=== PATIENT | male | born 1965 | race American Indian/Alaskan Native ===

== ENCOUNTER 2020-05-13 18:40 | Inpatient (IN) | payer OTHER ==
[2020-05-13] MEDS ORDERED: MORPHINE 4 MG/1 ML INJ IV ONE (18:48)
[2020-05-13] MEDS ORDERED: MORPHINE 2 MG/1 ML INJ ONE (18:50)
[2020-05-13] MEDS ORDERED: ONDANSETRON 4 MG/2 ML INJ ONE ×2 (18:50→22:23)
[2020-05-13] MEDS ORDERED: ONDANSETRON 4 MG/2 ML INJ IV ONE ×2 (18:51→20:20)
[2020-05-13] MEDS ORDERED: HYDROmorphone 1 MG/1 ML INJ IV ONE ×5 (18:56→21:14)
[2020-05-13] MEDS ORDERED: niCARdipine 50 MG in SODIUM CHLORIDE 0.9% 250ML 230 ML IV SCH (19:00)
[2020-05-13 19:09] LABS: Basophils % (Auto) 0.5 % (0.0-1.8); Eosinophils % (Auto) 0.5 % (0.0-4.3); Hematocrit 43.7 % (35.5-45.6); Hemoglobin 14.5 gm/dl (11.8-15.2); Lymphocytes # (Auto) 1.5 K/mm3 (1.2-5.4); Lymphocytes % (Auto) 16.4 % (13.4-35.0); Mean Corpuscular HGB Conc 33 % (32-34); Mean Corpuscular Volume 91 fl (84-94); Monocytes # (Auto) 0.4 K/mm3 (0.0-0.8); Platelet Count 285 K/mm3 (140-440); Red Blood Count 4.78 M/mm3 (3.65-5.03); Red Cell Distribution Width 13.4 % (13.2-15.2)
--- NOTE | 2020-05-13 19:12 | Emergency Department Report ---
ED Abdominal Pain HPI - General Chief Complaint: Abdominal Pain Stated Complaint: ABD PAIN Time Seen by Provider: 05/13/20 18:51 Source: EMS Mode of arrival: Ambulatory Limitations: No Limitations - History of Present Illness Initial Comments: 54-year-old male with a past medical history of hypertension off meds for "a long time" presents to the hospital complaining of sudden onset of mid abdominal pain prior to arrival. 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 Patient states he was having a constant strong midline abdominal pain. Patient presents hypertensive and diaphoretic. He denies nausea, vomiting, fever, cough, or dysuria. He denies previous abdominal surgeries. He denies alcohol abuse. EMS EKG reviewed and no signs of ST elevation CO. Patient denies pain radiation to the chest. Severity scale (0 -10): 7 - Related Data Allergies Allergy/AdvReac Type Severity Reaction Status Date / Time No Known Allergies Allergy Unverified 05/13/20 19:01 ED Review of Systems ROS: Stated complaint: ABD PAIN Other details as noted in HPI Comment: All other systems reviewed and negative ED Past Medical Hx - Past Medical History Previous Medical History?: Yes Hx Hypertension: Yes - Surgical History Past Surgical History?: No - Social History Smoking Status: Never Smoker Substance Use Type: Alcohol ED Physical Exam - General Limitations: No Limitations - Other Other exam information: General: Positive acute distress and diaphoresis Head: Atraumatic Eyes: normal appearance ENT: Moist mucous membranes Neck: Normal appearance, no midline tenderness Chest: Clear to auscultation bilaterally CV: Bradycardic regular rhythm Abdomen: Soft, normal bowel sounds, significant midline tenderness throughout mid abdomen Back: Normal inspection Extremity: Normal inspection, full range of motion Neuro: Alert O x 3, no facial asymmetry, speech clear, no gross motor sensory deficit Psych: Appropriate behavior Skin: Diaphoretic ED Course Vital Signs 05/13/20 05/13/20 05/13/20 18:46 18:53 18:59 Temperature 98.2 F Pulse Rate 56 L Respiratory 22 18 Rate Blood Pressure 212/96 216/63 Blood Pressure 216/96 [Right] O2 Sat by Pulse 100 Oximetry 05/13/20 05/13/20 05/13/20 19:00 19:01 19:27 Temperature Pulse Rate Respiratory 18 Rate Blood Pressure 212/96 191/107 Blood Pressure [Right] O2 Sat by Pulse 99 81 L Oximetry 05/13/20 05/13/20 05/13/20 19:31 19:45 19:48 Temperature Pulse Rate 54 L Respiratory 13 18 18 Rate Blood Pressure 191/107 191/107 Blood Pressure [Right] O2 Sat by Pulse 96 100 Oximetry 05/13/20 05/13/20 05/13/20 20:00 20:15 20:23 Temperature Pulse Rate 71 88 Respiratory 20 18 18 Rate Blood Pressure 198/100 187/97 Blood Pressure [Right] O2 Sat by Pulse 97 95 Oximetry 05/13/20 05/13/20 05/13/20 20:31 20:39 20:45 Temperature Pulse Rate 77 87 Respiratory 25 H 18 20 Rate Blood Pressure 187/97 175/91 Blood Pressure [Right] O2 Sat by Pulse 97 95 Oximetry 05/13/20 05/13/20 05/13/20 21:00 21:15 21:30 Temperature Pulse Rate 83 103 H 92 H Respiratory 13 15 17 Rate Blood Pressure 179/86 175/91 166/88 Blood Pressure [Right] O2 Sat by Pulse 96 92 Oximetry 05/13/20 05/13/20 05/14/20 21:45 22:00 01:10 Temperature 97.5 F L Pulse Rate 95 H 98 H 88 Respiratory 17 17 15 Rate Blood Pressure 164/87 167/82 153/84 Blood Pressure [Right] O2 Sat by Pulse 96 Oximetry 05/14/20 05/14/20 05/14/20 01:15 01:20 01:25 Temperature Pulse Rate 66 69 64 Respiratory 14 12 14 Rate Blood Pressure 158/88 158/87 167/91 Blood Pressure [Right] O2 Sat by Pulse 100 100 100 Oximetry 05/14/20 05/14/20 01:30 01:35 Temperature Pulse Rate 64 72 Respiratory 12 12 Rate Blood Pressure 165/91 162/89 Blood Pressure [Right] O2 Sat by Pulse 100 100 Oximetry - Reevaluation(s) Reevaluation #1: 05/13/20 19:12 Patient presents with significant pain, diaphoresis and hypertension with long- term noncompliance of blood pressure medication and sudden onset of midline abdominal pain. I am very concerned about an aortic dissection. I requested a stat CT a chest abdomen and pelvis prior to lab resulting. I expressed my concern and need for emergent IV contrast administration prior to creatinine and patient provided consent. Patient also medicated with narcotics and Zofran for pain and Cardene drip ordered to control hypertension 05/13/20 20:20 Patient requiring multiple doses of narcotics and Zofran for continued abdominal pain with diaphoresis. - Consultations Consultation #1: 05/13/20 20:25 Case discussed with on-call surgeon Dr. Blair requiring SBO findings and will review CT and evaluate patient for possible surgery today. Request hospitalist to admit. 05/13/20 21:15 ED Medical Decision Making - Lab Data Result diagrams: 05/13/20 19:00 05/13/20 19:00 Lab Results 05/13/20 05/13/20 05/13/20 Range/Units 19:00 19:00 19:00 WBC 9.4 (4.5-11.0) K/mm3 RBC 4.78 (3.65-5.03) M/mm3 Hgb 14.5 (11.8-15.2) gm/dl Hct 43.7 (35.5-45.6) % MCV 91 (84-94) fl MCH 30 (28-32) pg MCHC 33 (32-34) % RDW 13.4 (13.2-15.2) % Plt Count 285 (140-440) K/mm3 Lymph % (Auto) 16.4 (13.4-35.0) % [place] % (Auto) 4.0 (0.0-7.3) % Eos % (Auto) 0.5 (0.0-4.3) % Baso % (Auto) 0.5 (0.0-1.8) % Lymph # 1.5 (1.2-5.4) K/mm3 Broome # 0.4 (0.0-0.8) K/mm3 Eos # 0.0 (0.0-0.4) K/mm3 Baso # 0.0 (0.0-0.1) K/mm3 Seg Neutrophils % 78.6 H (40.0-70.0) % Seg Neutrophils # 7.4 (1.8-7.7) K/mm3 PT 13.1 (12.2-14.9) Sec. INR 1.01 (0.87-1.13) APTT 33.3 (24.2-36.6) Sec. Sodium 141 (137-145) mmol/L Potassium 3.5 L (3.6-5.0) mmol/L Chloride 101.4 (98-107) mmol/L Carbon Dioxide 27 (22-30) mmol/L Anion Gap 16 mmol/L BUN 13 (9-20) mg/dL Creatinine 1.1 (0.8-1.5) mg/dL Estimated GFR > 60 ml/min BUN/Creatinine Ratio 12 % Glucose 150 H (75-100) mg/dL Calcium 9.1 (8.4-10.2) mg/dL Total Bilirubin 1.50 H (0.1-1.2) mg/dL Direct Bilirubin 0.2 (0-0.2) mg/dL Indirect Bilirubin 1.3 mg/dL AST 28 (5-40) units/L ALT 28 (7-56) units/L Alkaline Phosphatase 93 (35-129) units/L Troponin T < 0.010 (0.00-0.029) ng/mL Total Protein 7.3 (6.3-8.2) g/dL Albumin 4.5 (3.9-5) g/dL Albumin/Globulin Ratio 1.6 % Lipase 222 H (13-60) units/L Urine Color (Yellow) Urine Turbidity (Clear) Urine pH (5.0-7.0) Ur Specific [place] (1.003-1.030) Urine Protein (Negative) mg/dL Urine Glucose (UA) (Negative) mg/dL Urine Ketones (Negative) mg/dL Urine Blood (Negative) Urine Nitrite (Negative) Urine Bilirubin (Negative) Urine Urobilinogen (<2.0) mg/dL Ur Leukocyte Esterase (Negative) Urine WBC (Auto) (0.0-6.0) /HPF Urine RBC (Auto) (0.0-6.0) /HPF Urine Opiates Screen Urine Methadone Screen Ur Barbiturates Screen Ur Phencyclidine Scrn Ur Amphetamines Screen U Benzodiazepines Scrn Urine Cocaine Screen U Marijuana (THC) Screen Drugs of Abuse Note Blood Type Antibody Screen 05/13/20 05/13/20 05/13/20 Range/Units 19:29 19:48 20:12 WBC (4.5-11.0) K/mm3 RBC (3.65-5.03) M/mm3 Hgb (11.8-15.2) gm/dl Hct (35.5-45.6) % MCV (84-94) fl MCH (28-32) pg MCHC (32-34) % RDW (13.2-15.2) % Plt Count (140-440) K/mm3 Lymph % (Auto) (13.4-35.0) % Bro[place] % (Auto) (0.0-7.3) % Eos % (Auto) (0.0-4.3) % Baso % (Auto) (0.0-1.8) % Lymph # (1.2-5.4) K/mm3 Bro[place] # (0.0-0.8) K/mm3 Eos # (0.0-0.4) K/mm3 Baso # (0.0-0.1) K/mm3 Seg Neutrophils % (40.0-70.0) % Seg Neutrophils # (1.8-7.7) K/mm3 PT (12.2-14.9) Sec. INR (0.87-1.13) APTT (24.2-36.6) Sec. Sodium (137-145) mmol/L Potassium (3.6-5.0) mmol/L Chloride (98-107) mmol/L Carbon Dioxide (22-30) mmol/L Anion Gap mmol/L BUN (9-20) mg/dL Creatinine (0.8-1.5) mg/dL Estimated GFR ml/min BUN/Creatinine Ratio % Glucose (75-100) mg/dL Calcium (8.4-10.2) mg/dL Total Bilirubin (0.1-1.2) mg/dL Direct Bilirubin (0-0.2) mg/dL Indirect Bilirubin mg/dL AST (5-40) units/L ALT (7-56) units/L Alkaline Phosphatase (35-129) units/L Troponin T (0.00-0.029) ng/mL Total Protein (6.3-8.2) g/dL Albumin (3.9-5) g/dL Albumin/Globulin Ratio % Lipase (13-60) units/L Urine Color Straw (Yellow) Urine Turbidity Clear (Clear) Urine pH 7.0 (5.0-7.0) Ur Specific [place] 1.023 (1.003-1.030) Urine Protein <15 mg/dl (Negative) mg/dL Urine Glucose (UA) 50 (Negative) mg/dL Urine Ketones 20 (Negative) mg/dL Urine Blood Sm (Negative) Urine Nitrite Neg (Negative) Urine Bilirubin Neg (Negative) Urine Urobilinogen < 2.0 (<2.0) mg/dL Ur Leukocyte Esterase Neg (Negative) Urine WBC (Auto) 1.0 (0.0-6.0) /HPF Urine RBC (Auto) 4.0 (0.0-6.0) /HPF Urine Opiates Screen Presumptive negative Urine Methadone Screen Presumptive negative Ur Barbiturates Screen Presumptive negative Ur Phencyclidine Scrn Presumptive negative Ur Amphetamines Screen Presumptive negative U Benzodiazepines Scrn Presumptive negative Urine Cocaine Screen Presumptive positive U Marijuana (THC) Screen Presumptive positive Drugs of Abuse Note Disclamer Blood Type B POSITIVE Antibody Screen Negative - EKG Data -: EKG Interpreted by Me EKG shows normal: sinus rhythm, ST-T waves (no stemi, repol) Rate: bradycardia (48) - Radiology Data Radiology results: report reviewed CT ANGIOGRAPHY OF THE CHEST, ABDOMEN AND PELVIS WITH INTRAVENOUS CONTRAST AND MULTIPLANAR MIP RECONSTRUCTIONS INDICATION / CLINICAL INFORMATION: Mid abdominal pain, hypertension and diaphoresis. TECHNIQUE: Axial CT images were obtained after injection of 100 cc Omnipaque 350 IV contrast using CTA protocol. 3 plane MIP / 3D reconstructions were produced. All CT scans at this location are performed using CT dose reduction for ALARA by means of automated exposure control. COMPARISON: None available. FINDINGS: CHEST: There is mild ectasia of the ascending thoracic aorta, measuring 3.8 cm near the root and 3.4 cm distally. I see no evidence of focal aneurysm or aortic dissection. No significant coronary artery calcification is seen. The tracheobronchial tree is normal. There is mild bibasilar dependent atelectasis. The lungs are otherwise clear. There is no evidence of adenopathy or effusion. ABDOMEN: There are a couple of dilated fluid-filled small bowel loops in the upper abdomen anteriorly. The loops are located above the transverse colon and anterior to the left lobe of the liver. There is significant localized fluid in the adjacent small bowel mesentery. The stomach is fluid-filled. I see no evidence of bowel wall thickening or free air. The liver, spleen, gallbladder, bile ducts, pancreas, adrenal glands and kidneys are normal. The abdominal aorta and its branches are normal. There is no evidence of aneurysm, dissection or significant stenosis. PELVIS: The distal ureters, urinary bladder and prostate gland are normal. No abnormal mass or fluid collection is seen. There is no evidence of appendicitis or diverticulitis. I do not identify a hernia. There are moderate degenerative changes at the lumbosacral junction. IMPRESSION: 1. Findings characteristic of a closed loop small bowel obstruction in the upper abdomen through an internal hernia anterior to the left lobe of the liver. There is associated localized mesenteric edema worrisome for early ischemia. No bowel wall thickening, pneumatosis or free air. 2. No evidence of aortic aneurysm or dissection. - Medical Decision Making Patient will be admitted to the hospital for surgery for small bowel obstruction. Patient remains diaphoretic and hypertensive requiring multiple doses of pain medication with poor pain control. Patient started on Cardene drip. However, I suspect that patient is drip can be titrated off once his pain is controlled. Dr. Blair plans to take patient to the operating room. Patient has been admitted to the ICU secondary to Cardene drip. UDS positive for cocaine and marijuana Critical Care Time: Yes Critical care time in (mins) excluding proc time.: 35 Critical care attestation.: If time is entered above; I have spent that time in minutes in the direct care of this critically ill patient, excluding procedure time. ED Disposition Clinical Impression: Small bowel obstruction, Uncontrolled hypertension, Cocaine abuse, Marijuana abuse, Intractable abdominal pain Disposition: OP ADMIT IP TO THIS HOSP Is pt being admited?: Yes Time of Disposition: 20:32 (Dr Wing/hosp)
[2020-05-13 19:21] LABS: INR 1.01 (0.87-1.13)
[2020-05-13 19:22] LABS: Partial Thromboplastin Time 33.3 Sec. (24.2-36.6)
[2020-05-13 19:27] LABS: Alanine Aminotransferase 28 units/L (7-56); Albumin 4.5 g/dL (3.9-5); BUN/Creatinine Ratio 12; Bilirubin,Direct 0.2 mg/dL (0-0.2); Blood Urea Nitrogen 13 mg/dL (9-20); Calcium 9.1 mg/dL (8.4-10.2); Hemolysis Index 18
--- NOTE | 2020-05-13 20:12 | Cat Scan Report ---
CT ANGIOGRAPHY OF THE CHEST, ABDOMEN AND PELVIS WITH INTRAVENOUS CONTRAST AND MULTIPLANAR MIP RECONST RUCTIONS INDICATION / CLINICAL INFORMATION: Mid abdominal pain, hypertension and diaphoresis. TECHNIQUE: Axial CT images were obtained after injection of 100 cc Omnipaque 350 IV contrast using CTA protocol. 3 plane MIP / 3D reconstructions were produced. All CT scans at this location are performed using CT dose reduction for ALARA by means of automated exposure control. COMPARISON: None available. FINDINGS: CHEST: There is mild ectasia of the ascending thoracic aorta, measuring 3.8 cm near the root and 3.4 cm distally. I see no evidence of focal aneurysm or aortic dissection. No significant coronary artery calcification is seen. The tracheobronchial tree is normal. There is mild bibasilar dependent atelectasis. The lungs are oth erwise clear. There is no evidence of adenopathy or effusion. ABDOMEN: There are a couple of dilated fluid-filled small bowel loops in the upper abdomen anteriorly . The loops are located above the transverse colon and anterior to the left lobe of the liver. There is significant localized fluid in the adjacent small bowel mesentery. The stomach is fluid-filled. I see no evidence of bowel wall thickening or free air. The liver, spleen, gallbladder, bile ducts, pancreas, adrenal glands and kidneys are normal. The abdo kylie aorta and its branches are normal. There is no evidence of aneurysm, dissection or significant stenosis. PELVIS: The distal ureters, urinary bladder and prostate gland are normal. No abnormal mass or fluid collection is seen. There is no evidence of appendicitis or diverticulitis. I do not identify a herni a. There are moderate degenerative changes at the lumbosacral junction. IMPRESSION: 1. Findings characteristic of a closed loop small bowel obstruction in the upper abdomen through an i nternal hernia anterior to the left lobe of the liver. There is associated localized mesenteric edema worrisome for early ischemia. No bowel wall thickening, pneumatosis or free air. 2. No evidence of aortic aneurysm or dissection. Signer Name: Juan Lobato MD Signed: 05/13/2020 8:07 PM Workstation Name: [id number]
[2020-05-13 20:21] LABS: Bilirubin,Urine NEG (Negative); Blood,Urine SM (Negative); Color,Urine Straw (Yellow); Protein,Urine <15 mg/dL mg/dL (Negative); Urobilinogen,Urine < 2.0 mg/dL (<2.0)
[2020-05-13 20:30] LABS: Amphetamine Screen,Urine PRESUMPTIVE NEGATIVE; Benzodiazepines Screen,Urine PRESUMPTIVE NEGATIVE; Cannabinoid Screen,Urine PRESUMPTIVE POSITIVE; Cocaine Screen,Urine PRESUMPTIVE POSITIVE; Methadone Screen,Urine PRESUMPTIVE NEGATIVE; Opiate Screen,Urine PRESUMPTIVE NEGATIVE
[2020-05-13] MEDS ORDERED: HYDROmorphone 1 MG/1 ML INJ ONE ×2 (21:17→22:23)
[2020-05-13] MEDS ORDERED: LIDOCAINE (1%) 10 MG/1 ML VIAL 20 ML MDV ONE (22:01)
[2020-05-13] MEDS ORDERED: BUPIVACAINE/PF (0.5%) 5 MG/1 ML 30 ML VIAL INFILTRATI ONE ×2 (22:01→23:24)
--- NOTE | 2020-05-13 22:04 | Consultation ---
History of Present Illness Consult date: 05/13/20 Reason for consult: abdominal pain Requesting physician: TIFFANI MORRELL Chief complaint: acute abdominal pain today - History of present illness History of present illness: 54yo M with uncontrolled hypertension presents with acute onset of abdominal pain. Evaluation in emergency department revealed findings suggestive of a closed loop small bowel obstruction on CT scan. General surgery was consulted. Patient reports that around 1 PM this afternoon, he had a sudden onset of severe abdominal pain. It has gradually worsened. Denies any fevers, chills, nausea, vomiting. He has never had anything like this before. Pain is maximum down the midline. He has had no prior surgeries. No known intestinal problems. He reports that his last use of cocaine and marijuana was a couple days ago. Denies any history of prior heart problems, heart attacks, strokes. No prior a nesthesia exposures. Past History Past Medical History: hypertension Past Surgical History: No surgical history Social history: smoking (1ppd), other (uses cocaine and marijuana). denies: alcohol abuse, prescription drug abuse Family history: no significant family history Medications and Allergies Allergies Allergy/AdvReac Type Severity Reaction Status Date / Time No Known Allergies Allergy Unverified 05/13/20 19:01 Active Meds: Active Medications Nicardipine HCl 50 mg/ Sodium (Chloride) 250 mls @ 25 mls/hr IV TITR TRIP; Protocol Last Titration: 05/13/20 20:13 Dose: 10 mg/hr, 50 mls/hr Documented by: Review of Systems - Constitutional no fever, no chills, no chronic pain - Cardiovascular no chest pain, no rapid/irregular heart beat, no shortness of breath - Respiratory no cough - Gastrointestinal abdominal pain, no nausea, no vomiting, no change in bowel habits, no hematemesis, no coffee ground emesis, no BRBPR, no melena, no hematochezia - Muskuloskeletal no low back pain - Integumentary no rash, no sores, no wounds, no jaundice - Neurological no seizures Exam Vital Signs BP 212/96 05/13/20 18:46 - General physical appearance Positive: well developed, well nourished, moderate distress, moderate pain, other (diaphoretic) - Eyes Positive: normal occular movement - Respiratory Positive: normal expansion, normal respiratory effort, clear to auscultation - Cardiovascular Rhythm: regular - Abdomen Abdomen: Present: soft, bowel sounds hypoactive, masses (in upper midline - not very tender). Absent: tender, distended, guarding, rigid, wound, surgical scars - Integumentary no rash, no growths, no abnormal pigmentation - Neurologic Neurologic: alert and oriented to time, place and person, motor strength and sensation are grossly intact - Psychiatric Psychiatric: appropriate mood/affect, intact judgment & insight, cooperative Results - Labs 05/13/20 19:00 05/13/20 19:00 Abnormal lab results 05/13/20 05/13/20 Range/Units 19:00 19:00 Seg Neutrophils % 78.6 H (40.0-70.0) % Potassium 3.5 L (3.6-5.0) mmol/L Glucose 150 H (75-100) mg/dL Total Bilirubin 1.50 H (0.1-1.2) mg/dL Lipase 222 H (13-60) units/L Diabetes panel 05/13/20 Range/Units 19:00 Sodium 141 (137-145) mmol/L Potassium 3.5 L (3.6-5.0) mmol/L Chloride 101.4 (98-107) mmol/L Carbon Dioxide 27 (22-30) mmol/L BUN 13 (9-20) mg/dL Creatinine 1.1 (0.8-1.5) mg/dL Glucose 150 H (75-100) mg/dL Calcium 9.1 (8.4-10.2) mg/dL AST 28 (5-40) units/L ALT 28 (7-56) units/L Alkaline Phosphatase 93 (35-129) units/L Total Protein 7.3 (6.3-8.2) g/dL Albumin 4.5 (3.9-5) g/dL Calcium panel 05/13/20 Range/Units 19:00 Calcium 9.1 (8.4-10.2) mg/dL Albumin 4.5 (3.9-5) g/dL Pituitary panel 05/13/20 Range/Units 19:00 Sodium 141 (137-145) mmol/L Potassium 3.5 L (3.6-5.0) mmol/L Chloride 101.4 (98-107) mmol/L Carbon Dioxide 27 (22-30) mmol/L BUN 13 (9-20) mg/dL Creatinine 1.1 (0.8-1.5) mg/dL Glucose 150 H (75-100) mg/dL Calcium 9.1 (8.4-10.2) mg/dL Adrenal panel 05/13/20 Range/Units 19:00 Sodium 141 (137-145) mmol/L Potassium 3.5 L (3.6-5.0) mmol/L Chloride 101.4 (98-107) mmol/L Carbon Dioxide 27 (22-30) mmol/L BUN 13 (9-20) mg/dL Creatinine 1.1 (0.8-1.5) mg/dL Glucose 150 H (75-100) mg/dL Calcium 9.1 (8.4-10.2) mg/dL Total Bilirubin 1.50 H (0.1-1.2) mg/dL AST 28 (5-40) units/L ALT 28 (7-56) units/L Alkaline Phosphatase 93 (35-129) units/L Total Protein 7.3 (6.3-8.2) g/dL Albumin 4.5 (3.9-5) g/dL - Imaging CT scan - abdomen: report reviewed, image reviewed CT scan - pelvis: report reviewed, image reviewed Assessment and Plan - Patient Problems (1) Small bowel obstruction Current Visit: Yes Status: Acute Plan to address problem: Pt stable. The overall picture is puzzling. His CT scan appears to show a closed-loop bowel obstruction and he reports severe abdominal pain. However, his exam is not very impressive. Also, I would expect that he would be nauseated and vomiting with a bowel obstruction. He denies any of the symptoms. At this point, we need to make sure he does not have a compromised loop of intestine. I have recommended that we proceed with a diagnostic laparoscopy. Procedure, risk, benefits were discussed. Patient understands there is a risk for exploratory laparotomy based on her findings. All questions were answered. Consent was obtained. Will proceed to OR tonight. time=30min
--- NOTE | 2020-05-13 22:10 | Anesthesia Day of Surgery ---
<KRAIG BRONSON - Last Filed: 05/13/20 22:10> Anesthesia Day of Surgery - Day of Surgery Patient Examined: Yes Patient H&P Reviewed: Yes Patient is NPO: Yes <SD DE LEON - Last Filed: 05/14/20 08:00> Anesthesia Day of Surgery - Day of Surgery Patient Examined: No (Document cosigned for chart completion purposes only.)
--- NOTE | 2020-05-13 22:10 | Anesthesia Consultation ---
<KRAIG BRONSON - Last Filed: 05/13/20 22:07> Anesthesia Consult and Med Hx Date of service: 05/13/20 - Airway Anesthetic Teeth Evaluation: Good ROM Head & Neck: Adequate Mental/Hyoid Distance: Adequate Mallampati Class: Class II Intubation Access Assessment: Probably Good - Pulmonary Exam CTA: Yes - Pre-Operative Health Status ASA Pre-Surgery Classification: ASA2, Emergency Proposed Anesthetic Plan: General - Pulmonary Hx Smoking: Yes (One pack per day) Hx Respiratory Symptoms: No Hx Sleep Apnea: No - Cardiovascular System Hx Hypertension: Yes - Central Nervous System Hx Seizures: No Hx Psychiatric Problems: No - Gastrointestinal Hx Gastroesophageal Reflux Disease: No - Endocrine Hx Renal Disease: No Hx Liver Disease: No Hx Non-Insulin Dependent Diabetes: No Hx Thyroid Disease: No - Hematic Hx Anemia: No Hx Sickle Cell Disease: No - Other Systems Hx Alcohol Use: No Hx Substance Use: Yes (Cocaine and Marijuana) Hx Obesity: No - Additional Comments Anesthesia Medical History Comments: Denied previous anesthesia complications <SD DE LEON - Last Filed: 05/14/20 08:01> Anesthesia Consult and Med Hx - Additional Comments Anesthesia Medical History Comments: Document cosigned for chart completion purposes only.
[2020-05-13] MEDS ORDERED: ROCURONIUM 50 MG/5 ML INJ IV ONE (22:23)
[2020-05-13] MEDS ORDERED: LIDOCAINE MPF (2%) 20 MG/1 ML VIAL 5 ML ONE (22:23)
[2020-05-13] MEDS ORDERED: ONDANSETRON 4 MG/2 ML INJ IV PRN (22:23)
[2020-05-13] MEDS ORDERED: dexAMETHasone 20 MG/5 ML VIAL ONE (22:23)
[2020-05-13] MEDS ORDERED: propofoL 200 MG/20 ML VIAL IV ONE (22:24)
--- NOTE | 2020-05-13 22:32 | History and Physical Report ---
History of Present Illness Date of examination: 05/13/20 Date of admission: 05/13/20 20:35 Chief complaint: Abdominal pain History of present illness: 54-year-old male with known history of hypertension presenting to the emergency room today complaining of abdominal pain. Abdominal pain was said to have started suddenly this afternoon. Abdominal pain is said to be more in the mid abdomen. No no relieving or exacerbating factor. He has had some nausea but no vomiting. Denies any diarrhea, no chest pain or shortness of breath, no hematuria or dysuria. Patient denies any sick contacts and no recent travel. He denies he denies contact with anyone with COVID-19. Patient has not been quite compliant with his blood pressure medications and upon arrival in the emergency room blood pressure was said to be quite elevated. Patient was started on IV Cardene drip. Work-up including CT scan of the abdomen and pelvis shows small bowel obstruction. General surgeon Dr. Blair was notified by the ER physician. Past History Past Medical History: hypertension Past Surgical History: No surgical history Social history: smoking (1ppd), other (uses cocaine and marijuana). denies: alcohol abuse, prescription drug abuse Family history: no significant family history Medications and Allergies Allergies Allergy/AdvReac Type Severity Reaction Status Date / Time No Known Allergies Allergy Unverified 05/13/20 19:01 Active Meds: Active Medications Hydromorphone HCl (Dilaudid) 0.5 mg IV Q3H PRN PRN Reason: Pain , Severe (7-10) Nicardipine HCl 50 mg/ Sodium (Chloride) 250 mls @ 25 mls/hr IV TITR TRIP; Protocol Last Titration: 05/13/20 20:13 Dose: 10 mg/hr, 50 mls/hr Documented by: Sodium Chloride (Nacl 0.9% 1000 Ml) 1,000 mls @ 125 mls/hr IV DIRECT TRIP Ondansetron HCl (Zofran) 4 mg IV Q8H PRN PRN Reason: Nausea And Vomiting Sodium Chloride (Sodium Chloride Flush Syringe 10 Ml) 10 ml IV BID TRIP Sodium Chloride (Sodium Chloride Flush Syringe 10 Ml) 10 ml IV PRN PRN PRN Reason: LINE FLUSH Review of Systems Constitutional: no fever, no chills Cardiovascular: no chest pain, no palpitations Respiratory: no cough, no shortness of breath Gastrointestinal: abdominal pain, nausea, vomiting, no diarrhea, no BRBPR Genitourinary Male: no dysuria, no hematuria, no flank pain Musculoskeletal: no neck pain, no low back pain Integumentary: no rash, no pruritis Neurological: no headaches, no confusion Psychiatric: no anxiety, no confusion Exam - Constitutional Vitals: Temp Pulse Resp BP Pulse Ox 98.2 F 98 H 17 167/82 92 05/13/20 18:53 05/13/20 22:00 05/13/20 22:00 05/13/20 22:00 05/13/20 21:30 General appearance: Present: mild distress, well-nourished, other (Diaphoretic) - EENT Eyes: Present: PERRL, EOM intact ENT: hearing intact, clear oral mucosa, dentition normal - Neck Neck: Present: supple - Respiratory Respiratory effort: normal Respiratory: bilateral: CTA - Cardiovascular Rhythm: regular Heart Sounds: Present: S1 & S2. Absent: gallop, systolic murmur, diastolic murmur, rub - Extremities Extremities: no ischemia, pulses intact, pulses symmetrical, No edema, Full ROM Peripheral Pulses: within normal limits - Abdominal General gastrointestinal: Present: soft, tender, non-distended, mass (Palpable mass in the epigastric region extending to mid abdomen, tender with minimal guarding, no rebound tenderness. Mass is soft.) - Integumentary Integumentary: Present: clear, warm, dry - Musculoskeletal Musculoskeletal: strength equal bilaterally - Psychiatric Psychiatric: appropriate mood/affect, intact judgment & insight, memory intact, cooperative - Neurologic Neurologic: CNII-XII intact, no focal deficits, moves all extremities HEART Score - HEART Score Troponin: Troponin T < 0.010 ng/mL (0.00-0.029) 05/13/20 19:00 Results - Labs CBC & Chem 7: 05/14/20 04:23 05/13/20 19:00 Labs: Abnormal lab results 05/13/20 05/13/20 Range/Units 19:00 19:00 Seg Neutrophils % 78.6 H (40.0-70.0) % Potassium 3.5 L (3.6-5.0) mmol/L Glucose 150 H (75-100) mg/dL Total Bilirubin 1.50 H (0.1-1.2) mg/dL Lipase 222 H (13-60) units/L Assessment and Plan - Patient Problems (1) Intractable abdominal pain Current Visit: Yes Status: Acute Plan to address problem: Secondary to small bowel obstruction. Patient will be placed on IV analgesic medication. General surgeon has been consulted by the ER physician for prompt evaluation and recommendation. (2) Uncontrolled hypertension Current Visit: Yes Status: Acute Plan to address problem: Patient placed on Cardene drip. Will monitor blood pressure according to protocol. Patient has not been quite compliant with his blood pressure medications. Compliance with medications encouraged (3) DVT prophylaxis Current Visit: Yes Status: Acute Plan to address problem: Patient placed on sequential compression device. (4) Full code status Current Visit: Yes Status: Acute
[2020-05-13] MEDS ORDERED: PHENYLEPHRINE/NS 1,000 MCG/10 ML SYRINGE (OR USE) IV ONE (23:00)
[2020-05-13] MEDS ORDERED: ceFAZolin 1 GM VIAL ONE (23:22)
[2020-05-13] MEDS ORDERED: LIDOCAINE (1%) 10 MG/1 ML VIAL 20 ML MDV INFILTRATI ONE (23:24)
[2020-05-13] MEDS ORDERED: LACTATED RINGERS 2,000 ML ONE (23:25)
[2020-05-13] MEDS ORDERED: SODIUM CHLORIDE 0.9% IRR 1,500 ML BOTTLE IR ONE (23:25)
[2020-05-13] MEDS ORDERED: SUCCINYLCHOLINE CHLORIDE 200 MG/10 ML INJ MDV ONE (23:47)
[2020-05-14] MEDS ORDERED: LACTATED RINGERS 1,000 ML ONE ×2 (00:26)
[2020-05-14] MEDS ORDERED: GLYCOPYRROLATE 0.4 MG/2 ML INJ ONE (00:44)
[2020-05-14] MEDS ORDERED: NEOSTIGMINE 10MG/10 ML INJ MDV ONE (00:44)
--- NOTE | 2020-05-14 01:26 | Post Operative Note ---
Date of procedure: 05/14/20 (dictation:[id number]) Pre-op diagnosis: closed loop SBO Post-op diagnosis: other (Internal hernia with closed loop SBO) Findings: hernia through defect in falciform ligament necrotic small bowel Procedure: Dx laparoscopy converted to exploratory laparotomy small bowel resection with primary anastomosis IVF 2300cc UOP 175cc EBL ~50cc Anesthesia: GETA Surgeon: NANCI CHEUNG Estimated blood loss: 50-100ml Pathology: list (small bowel ~35cm) Specimen disposition: to lab Condition: stable Disposition: PACU
[2020-05-14] MEDS: HYDROmorphone 1 MG/1 ML INJ IV PRN ×3 (03:17→20:15)
[2020-05-14] MEDS: SODIUM CHLORIDE 0.9% 1000 ML 1,000 ML IV SCH ×3 (03:38→17:28)
[2020-05-14 04:54] LABS: Hematocrit 42.4 % (35.5-45.6); Hemoglobin 14.2 gm/dl (11.8-15.2); Mean Corpuscular HGB Conc 34 % (32-34); Mean Corpuscular Volume 91 fl (84-94); Platelet Count 261 K/mm3 (140-440); Red Blood Count 4.68 M/mm3 (3.65-5.03); Red Cell Distribution Width 13.2 % (13.2-15.2)
[2020-05-14 05:01] LABS: BUN/Creatinine Ratio 13; Blood Urea Nitrogen 12 mg/dL (9-20); Calcium 8.8 mg/dL (8.4-10.2); Hemolysis Index 14
[2020-05-14 05:05] LABS: Monocytes # (Auto) 0.2 K/mm3 (0.0-0.8); Monocytes % (Auto) 2.1 % (0.0-7.3)
[2020-05-14 05:11] LABS: INR 1.03 (0.87-1.13)
--- NOTE | 2020-05-14 12:05 | Progress Note ---
Assessment and Plan - Patient Problems (1) Small bowel obstruction Current Visit: Yes Status: Acute Plan to address problem: Pt stable. s/p ex lap with small bowel resection - 05/14 - POD#0. Patient is much improved. Symptoms are much improved. Need to await resumption of bowel function before we can start a diet. Hatfield catheter was removed today. We will continue with NG tube for now. Encourage patient to ambulate. We will follow along. Please call with any questions. Subjective Date of service: 05/14/20 Patient Reports: Positive: feels better, pain is less. Negative: nausea, vomiting Objective Vital Signs - 12hr 05/14/20 05/14/20 05/14/20 01:10 01:15 01:20 Temperature 97.5 F L Pulse Rate 88 66 69 Respiratory 15 14 12 Rate Blood Pressure 153/84 158/88 158/87 Blood Pressure [Left] O2 Sat by Pulse 96 100 100 Oximetry 05/14/20 05/14/20 05/14/20 01:25 01:30 01:35 Temperature Pulse Rate 64 64 72 Respiratory 14 12 12 Rate Blood Pressure 167/91 165/91 162/89 Blood Pressure [Left] O2 Sat by Pulse 100 100 100 Oximetry 05/14/20 05/14/20 05/14/20 01:45 02:52 07:13 Temperature 98.2 F 98.3 F Pulse Rate 67 80 69 Respiratory 11 L 17 18 Rate Blood Pressure 162/89 182/101 Blood Pressure 166/94 [Left] O2 Sat by Pulse 100 97 98 Oximetry 05/14/20 11:00 Temperature 98.0 F Pulse Rate 71 Respiratory 20 Rate Blood Pressure Blood Pressure 178/102 [Left] O2 Sat by Pulse 100 Oximetry - General physical appearance no distress, no pain, other (looks much better) - Eyes normal occular movement - Respiratory normal expansion, normal respiratory effort - Abdomen soft, tender (appropriate), distended (minimal), not guarding, not rigid - Integumentary no rash, no growths, no abnormal pigmentation - Psychiatric oriented to time, oriented to person, oriented to place, speech is normal, memory intact - Labs 05/14/20 04:23 05/14/20 04:23 Diabetes panel 05/13/20 05/14/20 Range/Units 19:00 04:23 Sodium 141 140 (137-145) mmol/L Potassium 3.5 L 4.1 (3.6-5.0) mmol/L Chloride 101.4 102.9 (98-107) mmol/L Carbon Dioxide 27 26 (22-30) mmol/L BUN 13 12 (9-20) mg/dL Creatinine 1.1 0.9 (0.8-1.5) mg/dL Glucose 150 H 127 H (75-100) mg/dL Calcium 9.1 8.8 (8.4-10.2) mg/dL AST 28 (5-40) units/L ALT 28 (7-56) units/L Alkaline Phosphatase 93 (35-129) units/L Total Protein 7.3 (6.3-8.2) g/dL Albumin 4.5 (3.9-5) g/dL Calcium panel 05/13/20 05/14/20 Range/Units 19:00 04:23 Calcium 9.1 8.8 (8.4-10.2) mg/dL Albumin 4.5 (3.9-5) g/dL Pituitary panel 05/13/20 05/14/20 Range/Units 19:00 04:23 Sodium 141 140 (137-145) mmol/L Potassium 3.5 L 4.1 (3.6-5.0) mmol/L Chloride 101.4 102.9 (98-107) mmol/L Carbon Dioxide 27 26 (22-30) mmol/L BUN 13 12 (9-20) mg/dL Creatinine 1.1 0.9 (0.8-1.5) mg/dL Glucose 150 H 127 H (75-100) mg/dL Calcium 9.1 8.8 (8.4-10.2) mg/dL Adrenal panel 05/13/20 05/14/20 Range/Units 19:00 04:23 Sodium 141 140 (137-145) mmol/L Potassium 3.5 L 4.1 (3.6-5.0) mmol/L Chloride 101.4 102.9 (98-107) mmol/L Carbon Dioxide 27 26 (22-30) mmol/L BUN 13 12 (9-20) mg/dL Creatinine 1.1 0.9 (0.8-1.5) mg/dL Glucose 150 H 127 H (75-100) mg/dL Calcium 9.1 8.8 (8.4-10.2) mg/dL Total Bilirubin 1.50 H (0.1-1.2) mg/dL AST 28 (5-40) units/L ALT 28 (7-56) units/L Alkaline Phosphatase 93 (35-129) units/L Total Protein 7.3 (6.3-8.2) g/dL Albumin 4.5 (3.9-5) g/dL
[2020-05-14] MEDS: hydrALAZINE 20 MG/1 ML INJ IV PRN ×2 (12:51→20:11)
[2020-05-14 12:54] LABS: Total Cells Counted 100
[2020-05-14 12:55] LABS: Basophils % (Manual) 0 % (0.0-1.8); Eosinophils % (Manual) 0 % (0.0-4.3); Platelet Estimate Consistent w Auto; RBC Morphology Normal
[2020-05-14] MEDS ORDERED: cloNIDine TTS 0.2 MG/24 HR PATCH TD SCH (13:00)
--- NOTE | 2020-05-14 13:55 | Operative Report ---
PREOPERATIVE DIAGNOSIS: Closed loop small-bowel obstruction. POSTOPERATIVE DIAGNOSES: 1. Internal hernia with closed loop small-bowel obstruction. 2. Necrotic small bowel. PROCEDURES: 1. Diagnostic laparoscopy converted to exploratory laparotomy. 2. Small bowel resection with primary anastomosis. ATTENDING PHYSICIAN: Mahsa Blair MD ANESTHESIA: General. ESTIMATED BLOOD LOSS: Approximately 50 mL. FLUIDS: 2300 mL. URINE OUTPUT: 175 mL. FINDINGS: Approximately 35 cm of ischemic/gangrenous small bowel. SPECIMENS: 35 cm of small bowel. DRAINS: None. COMPLICATIONS: None. DISPOSITION: Stable, transferred to Recovery Room. INDICATIONS: This is a 54-year-old gentleman who presented to the Emergency Room with acute onset of abdominal pain earlier in the day. CT scan suggested a closed loop bowel obstruction. The patient was found to be in exquisite pain and decision was made for immediate diagnostic laparoscopy. Procedure, risks, benefits were explained to the patient. Risks include but were not limited to infection, bleeding, pain, injury to surrounding structures, possible need for open surgery, possible need for bowel resection, possible need for further procedures in the future. The patient understood and consented. OPERATIVE NOTE: The patient was brought to the operating room and placed on the table in supine position. After adequate general anesthesia was established, the patient was prepped and draped in usual sterile fashion. Antibiotics have been given prior to start of the case. SCDs were in place. Time-out was called. We began by making an infraumbilical vertical incision to perform an open technique for access with the Cristina port. Dissection was carried down to the fascia. Fascia was incised vertically. We entered the peritoneal cavity safely. Port was inserted. Abdomen was insufflated. We entered without damaging any of the underlying structures. Very quickly, we identified ischemic bowel and found additional bowel that was gangrenous. I placed a 5 mm port in the left side of the abdomen in hopes of trying to reduce the bowel. I was unable to as we manipulated the bowel more and found it to be strangulated and with clearly nonviable segments. I elected to convert to open. We did an upper midline incision. We entered the peritoneal cavity safely. In examining the area, it turned out that the patient had a small defect in the falciform ligament through which the small bowel had herniated and become strangulated as the CT had shown it was sitting over the left lobe of the liver. With the LigaSure device, I took down the falciform ligament and divided it to the defect. We split the defect open. Thereafter, the bowel was easily reduced. We examined the bowel in its entirety, only the segment that was strangulated was compromised. Everything else was completely viable. We then draped off the surrounding area. I had approximated the portions of the small bowel that were still viable and placed a 3-0 silk stitch to hold them in place. Bowel clamps were applied to minimize spillage. Two small enterotomies were made in each limb of the small bowel that we were going to anastomose. Stapler was inserted. Firing was attempted; however, it did not fire smoothly. We were unable to complete the firing. I removed it. Only a portion of the bowel had been stapled and we experienced a moderate amount of bleeding from the staple line. I initially tried to control it, but thought that perhaps this was related to a poorly functioning stapler. We got a brand new stapler and tried it again. I decided that as I was unsure of the quality of the staple line, we would just go further down and anastomosed a new area, so we made 2 more enterotomies. Obviously, we moved the bowel clamps down further and inserted the stapler. This was a brand new stapler. We fired, it fired smoothly. We had a very nice division and anastomosis. However, we still encountered a moderate amount of oozing from the staple line. I tried using a 3-0 silk stitch on the inside to reinforce the staple line. We had an improvement, but still some bleeding was noted. I then used a 3-0 Vicryl on the outside to reinforce it. This worked to control the bleeding. It did not appear as though I had made the edges of ischemic base still seen very viable. I then took that same stapler with a new load and this was a 75 LUIS ENRIQUE stapler and then closed off the enterotomy that had been made. A portion of the mesentery was also included in the staple line. I divided the rest of the mesentery with the LigaSure device. We reinforced that area of division with a 3-0 Vicryl suture. I did a running stitch. Because of the problems, we had with the staple line on the inside, I was concerned that we may continue to have this and now it may be on the other side that I cannot see any bleeding from the staple line. I reinforced the entire staple line, new staple line on the bowel as well as along the mesentery. I had to place additional 3-0 silk stitches in a few spots to control bleeding. For some reason, the patient had a lot of oozing from all the needle holes despite his coagulation factors being normal. Pressure was held for greater than a minute. Thereafter, everything seemed very dry, good. I reduced it back into the abdomen. We thoroughly washed out the abdomen. Once we were done with that, I pulled that segment back out. It was completely hemostatic. There was no blood that I could tell accumulated within the lumen of the anastomosis. I was expecting that if the patient was bleeding significantly there be a fair amount of fullness in that area and I did not appreciate that I did not see any bruising or swelling of that area. It appears as though the oversewing worked well. The bowel was viable. I reinforced the crotch area with an additional 3-0 silk stitch. Everything looked very good. We reduced it back into the abdomen. I covered it with omentum, placed a 3 x 4-inch piece of Interceed over that area and then closed the fascia with a running #1 looped PDS suture. Prior to doing that, I closed the fascia at the port site, a 12-mm port site that was subumbilical. I had placed a malleable underneath it, so as not to incorporate any bowel or omentum into the closure. I closed with a 2-0 PDS suture. I checked it from the inside and we had a nice closure. We then proceeded to close the midline fascia. Wound was thoroughly irrigated. I placed Betadine-soaked julia in the wound and then closed the skin with stephanie. We placed 1 wick at the 12 mm port site and closed that with stephanie. A 5 mm port site was closed with stephanie as well. Skin was cleaned and dried, dressings were placed. The patient tolerated the procedure well. There were no complications. All counts were correct at the end of the case. JOB# [id number] BRITTANI/HERB
--- NOTE | 2020-05-14 14:39 | Progress Note ---
Subjective Date of service: 05/14/20 Interval history: 54-year-old male with known history of hypertension presenting to the emergency room today complaining of abdominal pain. Abdominal pain was said to have started suddenly this afternoon. Abdominal pain is said to be more in the mid abdomen. No no relieving or exacerbating factor. He has had some nausea but no vomiting. Denies any diarrhea, no chest pain or shortness of breath, no hematuria or dysuria. Patient denies any sick contacts and no recent travel. He denies he denies contact with anyone with COVID-19. Patient has not been quite compliant with his blood pressure medications and upon arrival in the emergency room blood pressure was said to be quite elevated. Patient was started on IV Cardene drip. Work-up including CT scan of the abdomen and pelvis shows small bowel obstruction. General surgeon Dr. Blair operative note reviewed 05/14 Patient is alert and oriented No apparent distress No specific complaints Explained to patient sister over the phone about patient's diagnosis and condition Assessment and plan Small bowel obstruction secondary to internal hernia Status post surgery with repair of hernia and partial small bowel resection General surgery note reviewed and appreciated Continue management per general surgery Hypertensive urgency Start the patient on clonidine patch as the patient is n.p.o. IV hydralazine as needed DVT prophylaxis Subcu heparin Objective - Constitutional Vitals: Vital Signs - 12hr 05/14/20 05/14/20 05/14/20 02:52 07:13 11:00 Temperature 98.2 F 98.3 F 98.0 F Pulse Rate 80 69 71 Respiratory 17 18 20 Rate Blood Pressure 182/101 Blood Pressure 166/94 178/102 [Left] O2 Sat by Pulse 97 98 100 Oximetry 05/14/20 12:51 Temperature Pulse Rate 71 Respiratory Rate Blood Pressure 178/102 Blood Pressure [Left] O2 Sat by Pulse Oximetry General appearance: Present: no acute distress, well-nourished - EENT Eyes: PERRL, EOM intact ENT: hearing intact, clear oral mucosa - Neck Neck: supple, normal ROM - Respiratory Respiratory effort: normal Respiratory: bilateral: CTA - Cardiovascular Rhythm: regular Heart Sounds: Present: S1 & S2 Extremities: No edema - Gastrointestinal General gastrointestinal: Present: soft, tender (Appropriate tenderness over the operated area), non-distended, absent bowel sounds, other Rectal Exam: deferred - Genitourinary Male genitourinary: deferred - Integumentary Integumentary: clear - Musculoskeletal Musculoskeletal: strength equal bilaterally - Neurologic Neurologic: no focal deficits - Psychiatric Psychiatric: appropriate mood/affect - Labs CBC & Chem 7: 05/14/20 04:23 05/14/20 04:23 Labs: Abnormal lab results 05/13/20 05/13/20 05/14/20 Range/Units 19:00 19:00 04:23 Seg Neutrophils % 78.6 H (40.0-70.0) % Seg Neuts % (Manual) 91.0 H (40.0-70.0) % Lymphocytes % (Manual) 5.0 L (13.4-35.0) % Seg Neutrophils # 9.8 H (1.8-7.7) K/mm3 Seg Neutrophils # Man 9.6 H (1.8-7.7) K/mm3 Lymphocytes # (Manual) 0.5 L (1.2-5.4) K/mm3 Potassium 3.5 L (3.6-5.0) mmol/L Glucose 150 H (75-100) mg/dL Total Bilirubin 1.50 H (0.1-1.2) mg/dL Lipase 222 H (13-60) units/L 05/14/20 Range/Units 04:23 Seg Neutrophils % (40.0-70.0) % Seg Neuts % (Manual) (40.0-70.0) % Lymphocytes % (Manual) (13.4-35.0) % Seg Neutrophils # (1.8-7.7) K/mm3 Seg Neutrophils # Man (1.8-7.7) K/mm3 Lymphocytes # (Manual) (1.2-5.4) K/mm3 Potassium (3.6-5.0) mmol/L Glucose 127 H (75-100) mg/dL Total Bilirubin (0.1-1.2) mg/dL Lipase (13-60) units/L HEART Score - HEART Score Troponin: Troponin T < 0.010 ng/mL (0.00-0.029) 05/13/20 19:00
[2020-05-15] MEDS: SODIUM CHLORIDE 0.9% 1000 ML 1,000 ML IV SCH ×2 (00:33→09:00)
[2020-05-15 05:36] LABS: Hematocrit 39.2 % (35.5-45.6); Hemoglobin 13.1 gm/dl (11.8-15.2); Mean Corpuscular HGB Conc 33 % (32-34); Mean Corpuscular Volume 90 fl (84-94); Platelet Count 246 K/mm3 (140-440); Red Blood Count 4.35 M/mm3 (3.65-5.03); Red Cell Distribution Width 13.3 % (13.2-15.2)
[2020-05-15 05:51] LABS: BUN/Creatinine Ratio 14; Blood Urea Nitrogen 13 mg/dL (9-20); Calcium 8.9 mg/dL (8.4-10.2); Hemolysis Index 4
[2020-05-15] MEDS: hydrALAZINE 20 MG/1 ML INJ IV PRN ×3 (05:54→21:44)
[2020-05-15] MEDS: HYDROmorphone 1 MG/1 ML INJ IV PRN ×2 (05:54→21:38)
--- NOTE | 2020-05-15 09:14 | Progress Note ---
Assessment and Plan - Patient Problems (1) Small bowel obstruction Current Visit: Yes Status: Acute Plan to address problem: Pt stable. s/p ex lap with small bowel resection - 05/14 - POD#1. Need to await resumption of bowel function before we can start a diet. Will change fluids to maintenance IV. Encourage patient to ambulate and use IS. We will follow along. Please call with any questions. Subjective Date of service: 05/15/20 Patient Reports: Positive: no new complaints, feels better, no flatus, no bowel movement. Negative: nausea, vomiting Objective Vital Signs - 12hr 05/14/20 05/15/20 05/15/20 22:55 04:25 05:54 Temperature 98.7 F 98.9 F Pulse Rate 74 100 H 100 H Respiratory 19 16 Rate Blood Pressure 185/89 172/95 172/95 O2 Sat by Pulse 98 99 Oximetry 05/15/20 07:20 Temperature 98.0 F Pulse Rate 91 H Respiratory 18 Rate Blood Pressure 154/78 O2 Sat by Pulse 98 Oximetry - General physical appearance no distress, no pain, other (looks well) - Respiratory normal expansion, normal respiratory effort - Abdomen soft, not tender, bowel sounds hypoactive, distended (mild), other (dressing wit h some dried drainage) - Integumentary no rash, no growths, no abnormal pigmentation - Psychiatric oriented to time, oriented to person, oriented to place, speech is normal, memory intact - Labs 05/15/20 05:09 05/15/20 05:09 Diabetes panel 05/15/20 Range/Units 05:09 Sodium 138 (137-145) mmol/L Potassium 3.5 L (3.6-5.0) mmol/L Chloride 100.2 (98-107) mmol/L Carbon Dioxide 28 (22-30) mmol/L BUN 13 (9-20) mg/dL Creatinine 0.9 (0.8-1.5) mg/dL Glucose 102 H (75-100) mg/dL Calcium 8.9 (8.4-10.2) mg/dL Calcium panel 05/15/20 Range/Units 05:09 Calcium 8.9 (8.4-10.2) mg/dL Pituitary panel 05/15/20 Range/Units 05:09 Sodium 138 (137-145) mmol/L Potassium 3.5 L (3.6-5.0) mmol/L Chloride 100.2 (98-107) mmol/L Carbon Dioxide 28 (22-30) mmol/L BUN 13 (9-20) mg/dL Creatinine 0.9 (0.8-1.5) mg/dL Glucose 102 H (75-100) mg/dL Calcium 8.9 (8.4-10.2) mg/dL Adrenal panel 05/15/20 Range/Units 05:09 Sodium 138 (137-145) mmol/L Potassium 3.5 L (3.6-5.0) mmol/L Chloride 100.2 (98-107) mmol/L Carbon Dioxide 28 (22-30) mmol/L BUN 13 (9-20) mg/dL Creatinine 0.9 (0.8-1.5) mg/dL Glucose 102 H (75-100) mg/dL Calcium 8.9 (8.4-10.2) mg/dL
[2020-05-15] MEDS: D5W/0.45% NACL/KCL 20 MEQ 20 MEQ/1,000 ML BAG IV SCH (11:29)
--- NOTE | 2020-05-15 15:42 | Progress Note ---
Subjective Date of service: 05/15/20 Interval history: 54-year-old male with known history of hypertension presenting to the emergency room today complaining of abdominal pain. Abdominal pain was said to have started suddenly this afternoon. Abdominal pain is said to be more in the mid abdomen. No no relieving or exacerbating factor. He has had some nausea but no vomiting. Denies any diarrhea, no chest pain or shortness of breath, no hematuria or dysuria. Patient denies any sick contacts and no recent travel. He denies he denies contact with anyone with COVID-19. Patient has not been quite compliant with his blood pressure medications and upon arrival in the emergency room blood pressure was said to be quite elevated. Patient was started on IV Cardene drip. Work-up including CT scan of the abdomen and pelvis shows small bowel obstruction. General surgeon Dr. Blair operative note reviewed 05/14 Patient is alert and oriented No apparent distress No specific complaints Explained to patient sister over the phone about patient's diagnosis and condition 05/15 patient is alert and oriented No acute events overnight No specific complaints Has a NG tube Not had any flatus since surgery N.p.o. General surgery note reviewed Lab results reviewed Assessment and plan Small bowel obstruction secondary to internal hernia Status post surgery with repair of hernia and partial small bowel resection General surgery note reviewed and appreciated Continue management per general surgery Hypertensive urgency Start the patient on clonidine patch as the patient is n.p.o. IV hydralazine as needed Mild hypokalemia Serum potassium 3.5 Continue IV fluids with potassium supplements Monitor electrolytes DVT prophylaxis Subcu heparin Objective - Constitutional Vitals: Vital Signs - 12hr 05/15/20 05/15/20 05/15/20 04:25 05:54 07:20 Temperature 98.9 F 98.0 F Pulse Rate 100 H 100 H 91 H Respiratory 16 18 Rate Blood Pressure 172/95 172/95 154/78 Blood Pressure [Left] O2 Sat by Pulse 99 98 Oximetry 05/15/20 05/15/20 05/15/20 11:09 11:34 11:38 Temperature 98.3 F 98.4 F Pulse Rate 95 H 93 H 93 H Respiratory 20 20 Rate Blood Pressure 169/94 169/94 Blood Pressure 169/94 [Left] O2 Sat by Pulse 100 100 Oximetry 05/15/20 15:28 Temperature 99 F Pulse Rate 106 H Respiratory 20 Rate Blood Pressure Blood Pressure 158/99 [Left] O2 Sat by Pulse 96 Oximetry General appearance: Present: no acute distress - EENT Eyes: PERRL, EOM intact ENT: hearing intact, clear oral mucosa - Neck Neck: supple, normal ROM - Respiratory Respiratory effort: normal Respiratory: bilateral: CTA - Cardiovascular Rhythm: regular Heart Sounds: Present: S1 & S2 Extremities: No edema - Gastrointestinal General gastrointestinal: Present: soft, tender (Appropriately tender over the operated area) Rectal Exam: deferred - Genitourinary Male genitourinary: deferred - Integumentary Integumentary: clear - Musculoskeletal Musculoskeletal: strength equal bilaterally - Neurologic Neurologic: no focal deficits - Psychiatric Psychiatric: appropriate mood/affect - Labs CBC & Chem 7: 05/15/20 05:09 05/15/20 05:09 Labs: Abnormal lab results 05/15/20 Range/Units 05:09 Potassium 3.5 L (3.6-5.0) mmol/L Glucose 102 H (75-100) mg/dL HEART Score - HEART Score Troponin: Troponin T < 0.010 ng/mL (0.00-0.029) 05/13/20 19:00
[2020-05-15] MEDS: ENOXAPARIN 40 MG/0.4 ML INJ SUB-Q SCH (21:38)
[2020-05-16] MEDS: HYDROmorphone 1 MG/1 ML INJ IV PRN ×3 (02:20→11:32)
[2020-05-16] MEDS: D5W/0.45% NACL/KCL 20 MEQ 20 MEQ/1,000 ML BAG IV SCH ×2 (02:58→11:32)
[2020-05-16 06:02] LABS: BUN/Creatinine Ratio 17; Blood Urea Nitrogen 15 mg/dL (9-20); Calcium 8.7 mg/dL (8.4-10.2); Hemolysis Index 4
[2020-05-16] MEDS: hydrALAZINE 20 MG/1 ML INJ IV PRN (06:11)
--- NOTE | 2020-05-16 13:15 | Progress Note ---
Subjective Date of service: 05/16/20 Interval history: 54-year-old male with known history of hypertension presenting to the emergency room today complaining of abdominal pain. Abdominal pain was said to have started suddenly this afternoon. Abdominal pain is said to be more in the mid abdomen. No no relieving or exacerbating factor. He has had some nausea but no vomiting. Denies any diarrhea, no chest pain or shortness of breath, no hematuria or dysuria. Patient denies any sick contacts and no recent travel. He denies he denies contact with anyone with COVID-19. Patient has not been quite compliant with his blood pressure medications and upon arrival in the emergency room blood pressure was said to be quite elevated. Patient was started on IV Cardene drip. Work-up including CT scan of the abdomen and pelvis shows small bowel obstruction. General surgeon Dr. Blair operative note reviewed 05/14 Patient is alert and oriented No apparent distress No specific complaints Explained to patient sister over the phone about patient's diagnosis and condition 05/15 patient is alert and oriented No acute events overnight No specific complaints Has a NG tube Not had any flatus since surgery N.p.o. General surgery note reviewed Lab results reviewed 05/16 No apparent distress Yet to pass flatus Complaints of sore throat Denies fever or chills Lab results reviewed Assessment and plan Small bowel obstruction secondary to internal hernia Status post surgery with repair of hernia and partial small bowel resection N.p.o. General surgery note reviewed and appreciated Continue management per general surgery Hypertensive urgency Continue clonidine patch as the patient is n.p.o. IV hydralazine as needed Mild hypokalemia Serum potassium 3.4 Continue IV fluids with potassium supplements Monitor electrolytes IV potassium rider x2 ordered DVT prophylaxis Subcu heparin Objective - Constitutional Vitals: Vital Signs - 12hr 05/16/20 05/16/20 05/16/20 06:11 06:45 07:00 Temperature 97.9 F 98.9 F Pulse Rate 77 91 H Respiratory 18 18 Rate Blood Pressure 185/89 Blood Pressure 164/97 160/84 [Left] O2 Sat by Pulse 97 97 Oximetry 05/16/20 05/16/20 12:00 12:02 Temperature 99 F Pulse Rate 75 Respiratory 18 18 Rate Blood Pressure Blood Pressure 166/86 [Left] O2 Sat by Pulse 98 Oximetry General appearance: Present: no acute distress - EENT Eyes: PERRL, EOM intact (For what follow-up to the condition is not COVID] left PERRLA-milligrams if the kidney function is normal is 40 mg once daily if the kidney function there is renal failure 30 mg daily there is no acute weight- based) ENT: hearing intact, clear oral mucosa (I even put Lovenox or Heparin 503 times daily subcu 5000) - Neck Neck: supple, normal ROM (Both of same) - Respiratory Respiratory effort: normal Respiratory: bilateral: CTA - Cardiovascular Rhythm: regular Heart Sounds: Present: S1 & S2 Extremities: No edema - Gastrointestinal General gastrointestinal: Present: soft, absent bowel sounds Rectal Exam: deferred - Genitourinary Male genitourinary: deferred - Integumentary Integumentary: clear - Musculoskeletal Musculoskeletal: strength equal bilaterally - Neurologic Neurologic: no focal deficits - Labs CBC & Chem 7: 05/15/20 05:09 05/16/20 05:18 Labs: Abnormal lab results 05/16/20 Range/Units 05:18 Potassium 3.4 L (3.6-5.0) mmol/L Chloride 97.8 L (98-107) mmol/L Glucose 127 H (75-100) mg/dL HEART Score - HEART Score Troponin: Troponin T < 0.010 ng/mL (0.00-0.029) 05/13/20 19:00
--- NOTE | 2020-05-16 14:08 | Progress Note ---
Assessment and Plan - Patient Problems (1) Small bowel obstruction Current Visit: Yes Status: Acute Plan to address problem: Pt stable. s/p ex lap with small bowel resection - 05/14 - POD#2. Patient has begun passing flatus. NG tube output appears gastric in the tubing. Will remove NG tube and begin sips of clear liquids. Encourage patient to ambulate and use IS. We will follow along. Please call with any questions. Subjective Date of service: 05/16/20 Patient Reports: Positive: no new complaints, feels better, pain is less, flatus. Negative: nausea, vomiting Objective Vital Signs - 12hr 05/16/20 05/16/20 05/16/20 06:11 06:45 07:00 Temperature 97.9 F 98.9 F Pulse Rate 77 91 H Respiratory 18 18 Rate Blood Pressure 185/89 Blood Pressure 164/97 160/84 [Left] O2 Sat by Pulse 97 97 Oximetry 05/16/20 05/16/20 12:00 12:02 Temperature 99 F Pulse Rate 75 Respiratory 18 18 Rate Blood Pressure Blood Pressure 166/86 [Left] O2 Sat by Pulse 98 Oximetry - General physical appearance no distress, no pain - Eyes normal occular movement - Respiratory normal expansion, normal respiratory effort - Abdomen soft, not tender, bowel sounds normal, not distended, not guarding, not rigid, surgical scars (wound is clean with julai in place) - Integumentary no rash, no growths, no abnormal pigmentation - Psychiatric oriented to time, oriented to person, oriented to place, speech is normal, memory intact - Labs 05/15/20 05:09 05/16/20 05:18 Diabetes panel 05/16/20 Range/Units 05:18 Sodium 137 (137-145) mmol/L Potassium 3.4 L (3.6-5.0) mmol/L Chloride 97.8 L (98-107) mmol/L Carbon Dioxide 29 (22-30) mmol/L BUN 15 (9-20) mg/dL Creatinine 0.9 (0.8-1.5) mg/dL Glucose 127 H (75-100) mg/dL Calcium 8.7 (8.4-10.2) mg/dL Calcium panel 05/16/20 Range/Units 05:18 Calcium 8.7 (8.4-10.2) mg/dL Pituitary panel 05/16/20 Range/Units 05:18 Sodium 137 (137-145) mmol/L Potassium 3.4 L (3.6-5.0) mmol/L Chloride 97.8 L (98-107) mmol/L Carbon Dioxide 29 (22-30) mmol/L BUN 15 (9-20) mg/dL Creatinine 0.9 (0.8-1.5) mg/dL Glucose 127 H (75-100) mg/dL Calcium 8.7 (8.4-10.2) mg/dL Adrenal panel 05/16/20 Range/Units 05:18 Sodium 137 (137-145) mmol/L Potassium 3.4 L (3.6-5.0) mmol/L Chloride 97.8 L (98-107) mmol/L Carbon Dioxide 29 (22-30) mmol/L BUN 15 (9-20) mg/dL Creatinine 0.9 (0.8-1.5) mg/dL Glucose 127 H (75-100) mg/dL Calcium 8.7 (8.4-10.2) mg/dL
[2020-05-16] MEDS: POTASSIUM CHLORIDE 10 MEQ 10 MEQ/100 ML BAG IV SCH ×2 (16:29→19:39)
[2020-05-16] MEDS: HYDROcodone/ACETAMINOPHEN 10-325MG TAB PO PRN (16:29)
[2020-05-16] MEDS: ENOXAPARIN 40 MG/0.4 ML INJ SUB-Q SCH (21:51)
[2020-05-16] MEDS: D5NS W/KCL 40 MEQ 40 MEQ/1,000 ML BAG IV SCH (22:33)
[2020-05-17 05:27] LABS: BUN/Creatinine Ratio 16; Blood Urea Nitrogen 14 mg/dL (9-20); Calcium 8.6 mg/dL (8.4-10.2); Hemolysis Index 6
[2020-05-17] MEDS: D5NS W/KCL 40 MEQ 40 MEQ/1,000 ML BAG IV SCH (11:10)
--- NOTE | 2020-05-17 14:46 | Progress Note ---
Assessment and Plan Assessment and plan: --Small bowel obstruction : s/p exploratory laparotomy and small bowel resection 05/14/2020 POD #3 Advance diet as tolerated, Surgery following Increase ambulation, possible discharge tomorrow if stable --Hypertensive urgency Moderate control, continue current antihypertensives PRN medications, and management --Mild hypokalemia; resolved Monitor electrolytes --DVT prophylaxis Subcu heparin. Ambulate as tolerated Possible discharge in 1 to 2 days if stable And of care reviewed with the patient and his nurse History Interval history: I have seen and examined the patient at bedside today Patient feels slightly better ambulatory and tolerating full liquid diet No new complaints, Vital signs reviewed Hospitalist Physical - Constitutional Vitals: Temp Pulse Resp BP Pulse Ox 98.0 F 73 20 172/95 100 05/17/20 11:00 05/17/20 11:00 05/17/20 11:00 05/17/20 11:00 05/17/20 11:00 General appearance: Present: no acute distress, well-nourished, obese - EENT Eyes: Present: PERRL, EOM intact - Neck Neck: Present: supple, normal ROM - Respiratory Respiratory effort: normal Respiratory: negative: rales, rhonchi, wheezing - Cardiovascular Rhythm: regular Heart Sounds: Present: S1 & S2 - Extremities Extremities: no ischemia, No edema - Abdominal General gastrointestinal: soft, non-tender, non-distended, normal bowel sounds - Integumentary Integumentary: Present: clear, warm - Psychiatric Psychiatric: appropriate mood/affect, cooperative - Neurologic Neurologic: moves all extremities HEART Score - HEART Score Troponin: Troponin T < 0.010 ng/mL (0.00-0.029) 05/13/20 19:00 Results - Labs CBC & Chem 7: 05/15/20 05:09 05/17/20 04:44 Labs: Laboratory Last Values WBC 10.2 K/mm3 (4.5-11.0) 05/15/20 05:09 RBC 4.35 M/mm3 (3.65-5.03) 05/15/20 05:09 Hgb 13.1 gm/dl (11.8-15.2) 05/15/20 05:09 Hct 39.2 % (35.5-45.6) 05/15/20 05:09 MCV 90 fl (84-94) 05/15/20 05:09 MCH 30 pg (28-32) 05/15/20 05:09 MCHC 33 % (32-34) 05/15/20 05:09 RDW 13.3 % (13.2-15.2) 05/15/20 05:09 Plt Count 246 K/mm3 (140-440) 05/15/20 05:09 Lymph % (Auto) 16.4 % (13.4-35.0) 05/13/20 19:00 [place] % (Auto) 2.1 % (0.0-7.3) 05/14/20 04:23 Eos % (Auto) 0.0 % (0.0-4.3) 05/14/20 04:23 Baso % (Auto) 0.5 % (0.0-1.8) 05/13/20 19:00 Lymph # 1.5 K/mm3 (1.2-5.4) 05/13/20 19:00 [place] # 0.2 K/mm3 (0.0-0.8) 05/14/20 04:23 Eos # 0.0 K/mm3 (0.0-0.4) 05/14/20 04:23 Baso # 0.0 K/mm3 (0.0-0.1) 05/14/20 04:23 Add Manual Diff Complete 05/14/20 04:23 Total Counted 100 05/14/20 04:23 Seg Neutrophils % System Planning Engineer 05/14/20 04:23 Seg Neuts % (Manual) 91.0 % (40.0-70.0) H 05/14/20 04:23 Band Neutrophils % 0 % 05/14/20 04:23 Lymphocytes % (Manual) 5.0 % (13.4-35.0) L 05/14/20 04:23 Reactive Lymphs % (Man) 0 % 05/14/20 04:23 Monocytes % (Manual) 4.0 % (0.0-7.3) 05/14/20 04:23 Eosinophils % (Manual) 0 % (0.0-4.3) 05/14/20 04:23 Basophils % (Manual) 0 % (0.0-1.8) 05/14/20 04:23 Metamyelocytes % 0 % 05/14/20 04:23 Myelocytes % 0 % 05/14/20 04:23 Promyelocytes % 0 % 05/14/20 04:23 Blast Cells % 0 % 05/14/20 04:23 Nucleated RBC % Not Reportable 05/14/20 04:23 Seg Neutrophils # 9.8 K/mm3 (1.8-7.7) H 05/14/20 04:23 Seg Neutrophils # Man 9.6 K/mm3 (1.8-7.7) H 05/14/20 04:23 Band Neutrophils # 0.0 K/mm3 05/14/20 04:23 Lymphocytes # (Manual) 0.5 K/mm3 (1.2-5.4) L 05/14/20 04:23 Abs React Lymphs (Man) 0.0 K/mm3 05/14/20 04:23 Monocytes # (Manual) 0.4 K/mm3 (0.0-0.8) 05/14/20 04:23 Eosinophils # (Manual) 0.0 K/mm3 (0.0-0.4) 05/14/20 04:23 Basophils # (Manual) 0.0 K/mm3 (0.0-0.1) 05/14/20 04:23 Metamyelocytes # 0.0 K/mm3 05/14/20 04:23 Myelocytes # 0.0 K/mm3 05/14/20 04:23 Promyelocytes # 0.0 K/mm3 05/14/20 04:23 Blast Cells # 0.0 K/mm3 05/14/20 04:23 WBC Morphology Not Reportable 05/14/20 04:23 Hypersegmented Neuts Not Reportable 05/14/20 04:23 Hyposegmented Neuts Not Reportable 05/14/20 04:23 Hypogranular Neuts Not Reportable 05/14/20 04:23 Smudge Cells Not Reportable 05/14/20 04:23 Toxic Granulation Not Reportable 05/14/20 04:23 Toxic Vacuolation Not Reportable 05/14/20 04:23 Dohle Bodies Not Reportable 05/14/20 04:23 Pelger-Huet Anomaly Not Reportable 05/14/20 04:23 Luther Rods Not Reportable 05/14/20 04:23 Platelet Estimate Consistent w auto 05/14/20 04:23 Clumped Platelets Not Reportable 05/14/20 04:23 Plt Clumps, EDTA Not Reportable 05/14/20 04:23 Large Platelets Not Reportable 05/14/20 04:23 Giant Platelets Not Reportable 05/14/20 04:23 Platelet Satelliting Not Reportable 05/14/20 04:23 Plt Morphology Comment Not Reportable 05/14/20 04:23 RBC Morphology Normal 05/14/20 04:23 Dimorphic RBCs Not Reportable 05/14/20 04:23 Polychromasia Not Reportable 05/14/20 04:23 Hypochromasia Not Reportable 05/14/20 04:23 Poikilocytosis Not Reportable 05/14/20 04:23 Anisocytosis Not Reportable 05/14/20 04:23 Microcytosis Not Reportable 05/14/20 04:23 Macrocytosis Not Reportable 05/14/20 04:23 Spherocytes Not Reportable 05/14/20 04:23 Pappenheimer Bodies Not Reportable 05/14/20 04:23 Sickle Cells Not Reportable 05/14/20 04:23 Target Cells Not Reportable 05/14/20 04:23 Tear Drop Cells Not Reportable 05/14/20 04:23 Ovalocytes Not Reportable 05/14/20 04:23 Helmet Cells Not Reportable 05/14/20 04:23 [place] Bodies Not Reportable 05/14/20 04:23 [place] Rings Not Reportable 05/14/20 04:23 [place] Cells Not Reportable 05/14/20 04:23 Bite Cells Not Reportable 05/14/20 04:23 Crenated Cell Not Reportable 05/14/20 04:23 Elliptocytes Not Reportable 05/14/20 04:23 Acanthocytes (Spur) Not Reportable 05/14/20 04:23 Rouleaux Not Reportable 05/14/20 04:23 Hemoglobin C Crystals Not Reportable 05/14/20 04:23 Schistocytes Not Reportable 05/14/20 04:23 Malaria parasites Not Reportable 05/14/20 04:23 Noé Bodies Not Reportable 05/14/20 04:23 Hem Pathologist Commnt No 05/14/20 04:23 PT 13.3 Sec. (12.2-14.9) 05/14/20 04:23 INR 1.03 (0.87-1.13) 05/14/20 04:23 APTT 33.3 Sec. (24.2-36.6) 05/13/20 19:00 Sodium 135 mmol/L (137-145) L 05/17/20 04:44 Potassium 3.6 mmol/L (3.6-5.0) 05/17/20 04:44 Chloride 97.3 mmol/L (98-107) L 05/17/20 04:44 Carbon Dioxide 29 mmol/L (22-30) 05/17/20 04:44 Anion Gap 12 mmol/L 05/17/20 04:44 BUN 14 mg/dL (9-20) 05/17/20 04:44 Creatinine 0.9 mg/dL (0.8-1.5) 05/17/20 04:44 Estimated GFR > 60 ml/min 05/17/20 04:44 BUN/Creatinine Ratio 16 % 05/17/20 04:44 Glucose 118 mg/dL (75-100) H 05/17/20 04:44 Calcium 8.6 mg/dL (8.4-10.2) 05/17/20 04:44 Total Bilirubin 1.50 mg/dL (0.1-1.2) H 05/13/20 19:00 Direct Bilirubin 0.2 mg/dL (0-0.2) 05/13/20 19:00 Indirect Bilirubin 1.3 mg/dL 05/13/20 19:00 AST 28 units/L (5-40) 05/13/20 19:00 ALT 28 units/L (7-56) 05/13/20 19:00 Alkaline Phosphatase 93 units/L (35-129) 05/13/20 19:00 Troponin T < 0.010 ng/mL (0.00-0.029) 05/13/20 19:00 Total Protein 7.3 g/dL (6.3-8.2) 05/13/20 19:00 Albumin 4.5 g/dL (3.9-5) 05/13/20 19:00 Albumin/Globulin Ratio 1.6 % 05/13/20 19:00 Lipase 222 units/L (13-60) H 05/13/20 19:00 Urine Color Straw (Yellow) 05/13/20 20:12 Urine Turbidity Clear (Clear) 05/13/20 20:12 Urine pH 7.0 (5.0-7.0) 05/13/20 20:12 Ur Specific [place] 1.023 (1.003-1.030) 05/13/20 20:12 Urine Protein <15 mg/dl mg/dL (Negative) 05/13/20 20:12 Urine Glucose (UA) 50 mg/dL (Negative) 05/13/20 20:12 Urine Ketones 20 mg/dL (Negative) 05/13/20 20:12 Urine Blood Sm (Negative) 05/13/20 20:12 Urine Nitrite Neg (Negative) 05/13/20 20:12 Urine Bilirubin Neg (Negative) 05/13/20 20:12 Urine Urobilinogen < 2.0 mg/dL (<2.0) 05/13/20 20:12 Ur Leukocyte Esterase Neg (Negative) 05/13/20 20:12 Urine WBC (Auto) 1.0 /HPF (0.0-6.0) 05/13/20 20:12 Urine RBC (Auto) 4.0 /HPF (0.0-6.0) 05/13/20 20:12 Urine Opiates Screen Presumptive negative 05/13/20 19:48 Urine Methadone Screen Presumptive negative 05/13/20 19:48 Ur Barbiturates Screen Presumptive negative 05/13/20 19:48 Ur Phencyclidine Scrn Presumptive negative 05/13/20 19:48 Ur Amphetamines Screen Presumptive negative 05/13/20 19:48 U Benzodiazepines Scrn Presumptive negative 05/13/20 19:48 Urine Cocaine Screen Presumptive positive 05/13/20 19:48 U Marijuana (THC) Screen Presumptive positive 05/13/20 19:48 Drugs of Abuse Note Disclamer 05/13/20 19:48 Blood Type B POSITIVE 05/13/20 19:29 Antibody Screen Negative 05/13/20 19:29 [place]/IV: Voiding Method Toilet IV Catheter Type [Right Peripheral IV Antecubital] IV Catheter Type [Right Hand] Peripheral IV IV Catheter Type [Left Forearm INT / Saline Lock ] Active Medications - Current Medications Current Medications: Generic Name Dose Route Start Last Admin Trade Name Freq PRN Reason Stop Dose Admin Acetaminophen/Hydrocodone Bitart 1 each 05/16/20 14:07 05/16/20 16:29 [place] 10/325 PO 1 each Q6H PRN Administration Pain, Moderate (4-6) Clonidine HCl 0.2 mg 05/14/20 13:00 05/14/20 15:11 [place]-Tts Patch TD 0.2 mg We TRIP Administration Enoxaparin Sodium 40 mg 05/15/20 22:00 05/16/20 21:51 Enoxaparin SUB-Q 40 mg QDAY@2200 TRIP Administration Hydralazine HCl 10 mg 05/14/20 12:15 05/16/20 06:11 Apresoline IV 10 mg Q6HR PRN Administration SBP > 170 Hydromorphone HCl 0.5 mg 05/13/20 22:23 05/16/20 11:32 Dilaudid IV 0.5 mg Q3H PRN Administration Pain , Severe (7-10) Potassium Chloride/Dextrose/Sod Cl 40 meq in 1,000 mls @ 100 mls/hr 05/16/20 18:00 05/16/20 22:33 D5w/Ns W/Kcl 40meq IV 100 mls/hr DIRECT TRIP Administration Ondansetron HCl 4 mg 05/13/20 22:23 Zofran IV Q8H PRN Nausea And Vomiting Sodium Chloride 10 ml 05/14/20 10:00 05/16/20 21:51 Sodium Chloride Flush Syringe 10 Ml IV 10 ml BID TRIP Administration Sodium Chloride 10 ml 05/13/20 22:23 Sodium Chloride Flush Syringe 10 Ml IV PRN PRN LINE FLUSH Nutrition/Malnutrition Assess - Dietary Evaluation Nutrition/Malnutrition Findings: Nutrition Notes Start: 05/14/20 11:34 Freq: Status: Active Protocol: Document 05/16/20 11:56 LM (Rec: 05/16/20 11:58 LM [id number]) Nutrition Notes Initial or Follow up Brief Note Current Diagnosis Hypertension,Small Bowel Obstruction Other Pertinent Diagnosis polysubstance abuse, S/P small bowel resection with primary anastomosis Current Diet NPO Subjective/Other Information Pt remains NPO for now. Nutrition Intervention Follow-Up By: 05/19/20 Additional Comments F/U for diet advancement
--- NOTE | 2020-05-17 15:25 | Progress Note ---
Assessment and Plan 54-year-old male s/p ex lap with small bowel resection - 05/14 - POD#3 Plan: 1. adv to full liquid diet 2. gentle IVF 3. prn pain control- encouraged PO pain medication. Already on [place] 4. ambulation encouraged 5. Dressing changes prn 6. DVT ppx Dc planning in next 24 hours if continues to improve Thank you for this consultation. Please call with any questions or concerns. Subjective Date of service: 05/17/20 Narrative: Patient seen and examined. He states he is feeling well. His pain is controlled with IV pain medication. He is consistently passing flatus. He is tolerated a clear liquid diet. No nausea, vomiting, fevers, chills. He is ambulating in his room. Objective Vital Signs - 12hr 05/17/20 05/17/20 05/17/20 05:00 07:46 11:00 Temperature 98.4 F 98.3 F 98.0 F Pulse Rate 71 64 73 Respiratory 18 19 20 Rate Blood Pressure 130/78 190/165 172/95 [Left] O2 Sat by Pulse 96 99 100 Oximetry 05/17/20 15:15 Temperature 98.4 F Pulse Rate 69 Respiratory 20 Rate Blood Pressure 164/87 [Left] O2 Sat by Pulse 100 Oximetry - General physical appearance Narrative Exam: Gen.: Awake, alert, oriented 3. No apparent distress ENT: Trachea midline. No lymphadenopathy. No scleral icterus or conjunctival pallor CV: S1, S2 present Respiratory: No audible wheezes Abdomen: Soft, nondistended, mild tenderness to palpation near midline incision. Incision is clean, dry, intact. All julia removed, no drainage. No rebound, rigidity, guarding. Extremities: No clubbing, cyanosis, edema - Labs 05/15/20 05:09 05/17/20 04:44 Diabetes panel 05/17/20 Range/Units 04:44 Sodium 135 L (137-145) mmol/L Potassium 3.6 (3.6-5.0) mmol/L Chloride 97.3 L (98-107) mmol/L Carbon Dioxide 29 (22-30) mmol/L BUN 14 (9-20) mg/dL Creatinine 0.9 (0.8-1.5) mg/dL Glucose 118 H (75-100) mg/dL Calcium 8.6 (8.4-10.2) mg/dL Calcium panel 05/17/20 Range/Units 04:44 Calcium 8.6 (8.4-10.2) mg/dL Pituitary panel 05/17/20 Range/Units 04:44 Sodium 135 L (137-145) mmol/L Potassium 3.6 (3.6-5.0) mmol/L Chloride 97.3 L (98-107) mmol/L Carbon Dioxide 29 (22-30) mmol/L BUN 14 (9-20) mg/dL Creatinine 0.9 (0.8-1.5) mg/dL Glucose 118 H (75-100) mg/dL Calcium 8.6 (8.4-10.2) mg/dL Adrenal panel 05/17/20 Range/Units 04:44 Sodium 135 L (137-145) mmol/L Potassium 3.6 (3.6-5.0) mmol/L Chloride 97.3 L (98-107) mmol/L Carbon Dioxide 29 (22-30) mmol/L BUN 14 (9-20) mg/dL Creatinine 0.9 (0.8-1.5) mg/dL Glucose 118 H (75-100) mg/dL Calcium 8.6 (8.4-10.2) mg/dL
[2020-05-17] MEDS: HYDROcodone/ACETAMINOPHEN 10-325MG TAB PO PRN (16:21)
[2020-05-17] MEDS: ENOXAPARIN 40 MG/0.4 ML INJ SUB-Q SCH (22:06)
[2020-05-18 11:34] VITALS: BP 172/94
--- NOTE | 2020-05-18 12:32 | Progress Note ---
Assessment and Plan 54-year-old male s/p ex lap with small bowel resection - 05/14 - POD#4 Plan: 1. soft diet -patient instructed to continue a soft diet for the next 3 to 4 days 2. OOB/amb 3. dc IVF 4. ok to dc home - pt given verbal and printed dc instructions. Instructed to avoid heavy lifting, keep incision c/d and to follow up with Dr. Blair in 10 days for post op check. 5. Work note given, to excuse patient from work until he follows up with Dr. Blair. Thank you for this consultation. Please call with any questions or concerns. Subjective Date of service: 05/18/20 Narrative: Patient seen and examined. He has no acute complaints. His pain is well controlled. No fevers or chills. He tolerated a soft diet this morning. He is consistently passing flatus. No bowel movement yet. Objective Vital Signs - 12hr 05/18/20 05/18/20 05/18/20 05:27 07:25 11:15 Temperature 98.4 F 97.0 F L 98.4 F Pulse Rate 59 L 57 L 55 L Respiratory 16 20 20 Rate Blood Pressure 151/96 169/107 172/94 O2 Sat by Pulse 100 98 100 Oximetry - General physical appearance Narrative Exam: Gen.: Awake, alert, oriented 3. No apparent distress ENT: Trachea midline. No lymphadenopathy. No scleral icterus or conjunctival pallor CV: S1, S2 present Respiratory: No audible wheezes Abdomen: Soft, nondistended, nontender. Incision is clean, dry, intact. [place] in place. No rebound, rigidity, guarding Extremities: No clubbing, cyanosis, edema - Labs 05/15/20 05:09 05/17/20 04:44
[2020-05-18] MEDS: hydrALAZINE 20 MG/1 ML INJ IV PRN (12:49)
--- NOTE | 2020-05-18 13:55 | Discharge Summary ---
Providers - Providers Date of Admission: 05/13/20 20:35 Date of discharge: 05/18/20 Attending physician: JAI VELASQUEZ 05/13/20 20:26 Consult to Physician [CONS] Urgent Comment: Dr. Butt spoke with Dr. 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 Hospitalization Condition: Stable Disposition: DC-01 TO HOME OR SELFCARE Time spent for discharge: 32 min Core Measure Documentation - Palliative Care Palliative Care/ Comfort Measures: Not Applicable - Core Measures Any of the following diagnoses?: none Exam - Constitutional Vitals: Temp Pulse Resp BP Pulse Ox 98.4 F 55 L 20 172/94 100 05/18/20 11:15 05/18/20 12:49 05/18/20 11:15 05/18/20 12:49 05/18/20 11:15 General appearance: Present: no acute distress, well-nourished - EENT Eyes: Present: PERRL, EOM intact - Neck Neck: Present: supple, normal ROM - Respiratory Respiratory effort: normal Respiratory: bilateral: diminished, negative: rales, rhonchi, wheezing - Cardiovascular Rhythm: regular Heart Sounds: Present: S1 & S2 - Extremities Extremities: no ischemia, No edema - Abdominal General gastrointestinal: Present: soft, non-tender, non-distended, normal bowel sounds - Integumentary Integumentary: Present: clear, warm - Musculoskeletal Musculoskeletal: strength equal bilaterally - Psychiatric Psychiatric: appropriate mood/affect, cooperative - Neurologic Neurologic: moves all extremities Plan Activity: advance as tolerated Diet: advance as tolerated, other (Soft diet next 3 to 4 days) Additional Instructions: Soft diet next 3 4 days. Advance as tolerated. Ambulate as tolerated. If you have worsening symptoms contact MD or go to emergency room. Follow with surgeon in 10 days Follow up with: [facility] [Provider Group] - 7 Days NANCI CHEUNG MD [Staff Physician] - 10 Days PRIMARY MD MADDIE [Primary Care Provider] - 3-5 Days Forms: Work/School Release Form
== END 2020-05-18 17:00 | disposition home or self-care (01) | DRG 329 ==
LOC: ED 18:40 → CC1 20:35 → 3B-SURG 05-14 02:41
PROVIDERS: ADMIT Internal Medicine Geriatric Medicine; ATTEND Internal Medicine
PROC: 0DB80ZZ Excision of Small Intestine, Open Approach (ICD-10-PCS; principal; 2020-05-13)
PROC: 0DJV4ZZ Inspection of Mesentery, Percutaneous Endoscopic Approach (ICD-10-PCS; 2020-05-13)
DX: K46.0 Unspecified abdominal hernia with obstruction, without gangrene (principal); K55.029 Acute infarction of small intestine, extent unspecified; I10 Essential (primary) hypertension; I16.0 Hypertensive urgency; E87.6 Hypokalemia; F17.200 Nicotine dependence, unspecified, uncomplicated; F12.10 Cannabis abuse, uncomplicated; F14.10 Cocaine abuse, uncomplicated
CPT/HCPCS: 36415; 71275; 74174; 80048; 80076; 80307; 81001; 83690; 84484; 85007; 85025; 85027; 85610; 85730; 86850; 86900; 86901; 88307; 93005; 99406; G0378; C1765; J0330; J0360; J0690; J1100; J1170; J1650; J2270; J2370; J2405; J2704; J2710; J3480; J7030; J7050; J7120; Q9967